=== PATIENT | male | born 1965 | race Caucasian/White ===

== ENCOUNTER 2017-09-11 20:32 | Emergency (ER) | payer OTHER ==
[~2017-09-11] VITALS: Ht 172.7 cm; Wt 113.4 kg
[~2017-09-11 20:32] MED LIST: ATORVASTATIN CA10 MG; ATORVASTATIN CA20 MG; GLIMEPIRIDE1 MG; GLUMETZA1000 MG; KETO10TA2 PO; LOSARTAN POTASS50 MG; LOSARTAN-HCTZ1 EAC1; PROTONIX40 MG; VALACYCLOVIR500 MG
[2017-09-11] MEDS ORDERED: CLONAZEPAM0.5 MG (21:05)
[2017-09-11] MEDS ORDERED: VALACYCLOVIR500 MG (21:06)
== END 2017-09-12 01:45 ==
LOC: ER 20:32
DX: J06.9 Acute upper respiratory infection, unspecified (principal)

== ENCOUNTER 2019-10-30 14:19 | Emergency (ER) | payer OTHER ==
[~2019-10-30] VITALS: Ht 172.7 cm; Wt 105.7 kg
[~2019-10-30 14:19] MED LIST changes: +CLONAZEPAM0.5 MG
[2019-10-30] MEDS ORDERED: JANUVIA100 MG (14:33)
[2019-10-30] MEDS ORDERED: PANTOPRAZOLE SO40 MG (14:33)
[2019-10-30] MEDS ORDERED: DIOVAN40 MG PO (14:34)
[2019-10-30] MEDS ORDERED: KETO10TA2 PO (21:02)
[2019-10-30] MEDS ORDERED: INTESTINEX680 M1 PO (21:02)
[2019-10-30] MEDS ORDERED: AMOX-CLAV 875-1 EACH PO (21:02)
== END 2019-10-30 21:12 | disposition home or self-care (01) ==
LOC: ER 14:19
DX: J03.90 Acute tonsillitis, unspecified (principal); R05 Cough

== ENCOUNTER 2019-12-02 14:13 | Emergency (ER) | payer OTHER ==
[~2019-12-02] VITALS: Ht 172.7 cm; Wt 124.7 kg
[~2019-12-02 14:13] MED LIST changes: +AMOX-CLAV 875-1 EACH PO; +DIOVAN40 MG PO; +INTESTINEX680 M1 PO; +JANUVIA100 MG; +PANTOPRAZOLE SO40 MG
== END 2019-12-02 17:22 | disposition home or self-care (01) ==
LOC: ER 14:13
DX: B34.9 Viral infection, unspecified (principal)

== ENCOUNTER 2020-04-13 12:33 | Emergency (ER) | payer OTHER ==
[~2020-04-13] VITALS: Ht 172.7 cm; Wt 124.7 kg
[2020-04-13] MEDS ORDERED: TRAMADOL HCL50 MG PO (15:32)
[2020-04-13] MEDS ORDERED: INTESTINEX680 M1 PO (15:32)
[2020-04-13] MEDS ORDERED: COZAAR100 MG PO (15:32)
[2020-04-13] MEDS ORDERED: AMOX1TAB5 PO (15:32)
[2020-04-14] MEDS ORDERED: GLIPIZIDE XL2.5 MG PO (17:36)
[2020-04-14] MEDS ORDERED: CLONAZEPAM0.5 MG PO (17:37)
== END 2020-04-13 15:41 | disposition home or self-care (01) ==
LOC: ER 12:33 → EDBD 12:48 → ER 15:41
DX: S82.62XA Displaced fracture of lateral malleolus of left fibula, initial encounter for closed fracture (principal); W10.9XXA Fall (on) (from) unspecified stairs and steps, initial encounter; Y93.89 Activity, other specified; Y92.89 Other specified places as the place of occurrence of the external cause; Y99.8 Other external cause status

== ENCOUNTER 2020-04-18 06:14 | Day surgery (SDC) | payer OTHER ==
[~2020-04-18 06:14] MED LIST changes: +AMOX1TAB5 PO; +CLONAZEPAM0.5 MG PO; +COZAAR100 MG PO; +GLIPIZIDE XL2.5 MG PO; +TRAMADOL HCL50 MG PO
== END 2020-04-18 16:15 | disposition home or self-care (01) ==
LOC: EDBD → CIR.AMB 06:14
PROVIDERS: ATTEND Orthopaedic Surgery
DX: S82.62XA Displaced fracture of lateral malleolus of left fibula, initial encounter for closed fracture (principal); S93.492A Sprain of other ligament of left ankle, initial encounter

== ENCOUNTER 2020-04-24 12:19 | Outpatient (CLI) | payer OTHER | END 2020-04-24 12:23 | disposition home or self-care (01) | LOC: RAD 12:19 | PROVIDERS: ATTEND Orthopaedic Surgery | DX: S82.62XD Displaced fracture of lateral malleolus of left fibula, subsequent encounter for closed fracture with routine healing (principal); S93.432D Sprain of tibiofibular ligament of left ankle, subsequent encounter ==

== ENCOUNTER 2020-05-31 07:32 | Outpatient (CLI) | payer OTHER | END 2020-05-31 07:34 | disposition home or self-care (01) | LOC: RAD 07:32 | PROVIDERS: ATTEND Orthopaedic Surgery | DX: S82.62XD Displaced fracture of lateral malleolus of left fibula, subsequent encounter for closed fracture with routine healing (principal); S93.432D Sprain of tibiofibular ligament of left ankle, subsequent encounter ==

== ENCOUNTER 2020-06-16 12:32 | Outpatient (CLI) | payer OTHER | END 2020-06-16 12:42 | disposition home or self-care (01) | LOC: MAMO-SONO 12:32 | DX: N60.22 Fibroadenosis of left breast (principal) ==

== ENCOUNTER 2020-06-17 10:19 | Outpatient (CLI) | payer OTHER | END 2020-06-17 13:53 | disposition home or self-care (01) | LOC: LAB 10:19 | DX: E11.65 Type 2 diabetes mellitus with hyperglycemia (principal); E78.2 Mixed hyperlipidemia; N39.0 Urinary tract infection, site not specified; D50.0 Iron deficiency anemia secondary to blood loss (chronic); Z80.0 Family history of malignant neoplasm of digestive organs; Z80.1 Family history of malignant neoplasm of trachea, bronchus and lung; E88.89 Other specified metabolic disorders ==

== ENCOUNTER 2020-06-20 13:50 | Outpatient (CLI) | payer OTHER | END 2020-06-20 13:56 | disposition home or self-care (01) | LOC: RAD 13:50 | PROVIDERS: ATTEND Orthopaedic Surgery | DX: S82.62XD Displaced fracture of lateral malleolus of left fibula, subsequent encounter for closed fracture with routine healing (principal); S93.432D Sprain of tibiofibular ligament of left ankle, subsequent encounter ==

== ENCOUNTER → 2020-07-29 | Outpatient (CLI) | payer OTHER | END | disposition home or self-care (01) | LOC: RAD 10:36 | PROVIDERS: ATTEND Surgery | DX: M47.897 Other spondylosis, lumbosacral region (principal); M62.830 Muscle spasm of back; M54.89 Other dorsalgia ==

== ENCOUNTER 2020-07-31 12:34 | Outpatient (CLI) | payer OTHER | END 2020-07-31 12:36 | disposition home or self-care (01) | LOC: SONOGRAMA 12:34 | PROVIDERS: ATTEND Pathology Anatomic Pathology & Clinical Pathology | DX: N60.11 Diffuse cystic mastopathy of right breast (principal); N60.12 Diffuse cystic mastopathy of left breast ==

== ENCOUNTER 2020-10-02 06:00 | Day surgery (SDC) | payer OTHER ==
[2020-10-02] MEDS ORDERED: PERCOCET 5-3251 EACH PO (08:19)
[2020-10-02] MEDS ORDERED: RECTICARE30 GM TOP (08:20)
== END 2020-10-02 14:45 | disposition home or self-care (01) ==
LOC: CIR.AMB 06:00
PROVIDERS: ATTEND Surgery
DX: A63.0 Anogenital (venereal) warts (principal); Z20.828 Contact with and (suspected) exposure to other viral communicable diseases

== ENCOUNTER 2020-12-10 00:31 | Emergency (ER) | payer OTHER ==
[~2020-12-10] VITALS: Ht 172.7 cm; Wt 117.0 kg
[~2020-12-10 00:31] MED LIST changes: +PERCOCET 5-3251 EACH PO; +RECTICARE30 GM TOP
[2020-12-10] MEDS ORDERED: CIPRO500 MG PO (03:38)
[2020-12-10] MEDS ORDERED: PEPCID AC20 MG PO (03:38)
[2020-12-10] MEDS ORDERED: LEVSIN/SL0.125 MG SL (03:39)
== END 2020-12-10 04:01 | disposition home or self-care (01) ==
LOC: ER 00:31
DX: K52.89 Other specified noninfective gastroenteritis and colitis (principal); T78.1XXA Other adverse food reactions, not elsewhere classified, initial encounter; X58.XXXA Exposure to other specified factors, initial encounter

== ENCOUNTER 2024-05-08 16:27 | Emergency (ER) | payer OTHER ==
[~2024-05-08] VITALS: Ht 170.2 cm; Wt 127.0 kg
[~2024-05-08 16:27] MED LIST changes: +CIPRO500 MG PO; +LEVSIN/SL0.125 MG SL; +PEPCID AC20 MG PO
[2024-05-08] MEDS ORDERED: PANTOPRAZOLE SO20 MG PO (17:32)
[2024-05-08] MEDS ORDERED: BUSPIRONE HCL7.5 MG PO (17:32)
[2024-05-08] MEDS ORDERED: ATENOLOL25 MG PO (17:32)
[2024-05-08] MEDS ORDERED: KETOROLAC TROMETHAMINE 10 MG TABLET PO PRN (18:00)
[2024-05-08] MEDS ORDERED: KETOROLAC TROMETHAMINE 10 MG TABLET PO ONE (18:09)
== END 2024-05-08 19:43 | disposition home or self-care (01) ==
LOC: ER 16:28
DX: S89.81XA Other specified injuries of right lower leg, initial encounter (principal); S82.839A Other fracture of upper and lower end of unspecified fibula, initial encounter for closed fracture; W19.XXXA Unspecified fall, initial encounter; Y93.89 Activity, other specified; Y92.098 Other place in other non-institutional residence as the place of occurrence of the external cause; Y99.8 Other external cause status; I10 Essential (primary) hypertension; E11.9 Type 2 diabetes mellitus without complications